=== PATIENT | female | born 1970 | race Caucasian/White ===

== ENCOUNTER → 2017-06-08 | Outpatient (REF) ==
[~2017-06-08] MED LIST: DICL-195 PO; DOC100 PO; HYDR-4309 PO; KET10 PO; NONE CURRENTLY; PER PO
== END ==
LOC: AUD 10:20
PROVIDERS: ATTEND Nurse Practitioner Family
DX: Z01.10 Encounter for examination of ears and hearing without abnormal findings (principal)
CPT/HCPCS: 92552

== ENCOUNTER → 2017-09-23 | Outpatient (CLI) | payer BC, OTHER ==
--- NOTE | 2017-09-24 14:58 | RADIOLOGY IMAGING REPORT ---
FACILITY: [facility] PATIENT NAME: MCKAY BECK : [id number] MR: [id number] V: [id number] EXAM DATE: [id number] ORDERING PHYSICIAN: GLO CRANE TECHNOLOGIST: Pavithra Ron PROCEDURE:BILATERAL DIGITAL SCREENING MAMMOGRAM WITH CAD ASSISTED INTERPRETATION & 3D TOMOSYNTHESIS COMPARISON:prior mammogram 08/19/16. INDICATIONS:SCREENING FINDINGS: Breast tissue demonstrates scattered fibroglandular tissue elements. There is no suspicious mass, calcification, or architectural distortion. DIAGNOSTIC CATEGORY 1--NEGATIVE. RECOMMENDATIONS: ROUTINE MAMMOGRAM AND CLINICAL EVALUATION. IMPRESSION: BIRADS 1: Negative. No mammographic evidence for malignancy. Dictated by: Kobe Fonseca M.D. on 09/24/2017 at 12:06 Transcribed by: JESUS on 09/24/2017 at 13:25 Approved by: Kobe Fonseca M.D. on 09/24/2017 at 14:57 [facility]
== END ==
LOC: MAMO 01:52
PROVIDERS: ATTEND Nurse Practitioner Family
DX: Z12.31 Encounter for screening mammogram for malignant neoplasm of breast (principal)
CPT/HCPCS: 77063; 77067

== ENCOUNTER → 2018-05-31 | Outpatient (REF) ==
[~2018-05-31] MED LIST changes: -HYDR-4309 PO; +HYDR-653 PO
== END ==
LOC: AUD 10:15
PROVIDERS: ATTEND Nurse Practitioner Family
DX: Z01.12 Encounter for hearing conservation and treatment (principal)
CPT/HCPCS: 92552